=== PATIENT | female | born 2000 | race Caucasian/White ===

== ENCOUNTER 2020-09-19 12:26 | Emergency (ER) | payer OTHER ==
[~2020-09-19] VITALS: Ht 157.4 cm; Wt 51.3 kg
[2020-09-19 13:18] LABS: BILIRUBIN Negative (Negative); BLOOD 3+ (Negative); CLARITY Clear (Clear); COLOR Yellow (Yellow); GLUCOSE Negative (Negative); KETONE Negative (Negative); LEUKO ESTERASE Trace (Negative); NITRITE Negative (Negative); PH 7.5 (4.5-8.0)
[2020-09-19 13:30] LABS: RBC TNTC rbc/hpf (0-2)
[2020-09-19 13:31] LABS: WBC 21-30 wbc/hpf (0-5)
[2020-09-19 13:32] LABS: BACTERIA 1+
[2020-09-19] MEDS ORDERED: CEFUROXIME AXE500 MG PO (14:05)
== END 2020-09-19 14:13 | disposition home or self-care (01) ==
LOC: ED 12:26
PROVIDERS: Physician Assistant
DX: O20.0 Threatened abortion (principal); Z3A.01 Less than 8 weeks gestation of pregnancy; Z88.8 Allergy status to other drugs, medicaments and biological substances